=== PATIENT | male | born 1945 | race Caucasian/White ===

== ENCOUNTER → 2023-06-18 16:31 | Outpatient (REF) | payer MEDICARE, SELFPAY | LOC: PAVMRI 16:31 | PROVIDERS: ATTENDING PHYSICIAN Orthopaedic Surgery; FAMILY PHYSICIAN Internal Medicine | DX: M54.16 Radiculopathy, lumbar region (principal); M25.552 Pain in left hip | CPT/HCPCS: 72148; 73721 ==

== ENCOUNTER 2023-10-06 10:01 | Emergency (ER) | payer MEDICARE, SELFPAY ==
[2023-10-06 10:06] VITALS: BP 129/69
[2023-10-06 10:29] LABS: % Basophils 0.3 % (0-2); % Immature Granulocytes 0.8 % (0-0.5); % Lymphocytes 12.1 % (20.5-51.1); % Monocytes 5.9 % (1.7-9.3); % Neutrophils 77.9 % (42.2-75.2); Absolute Eosinophils 0.3 10^3/uL (0-0.7); Absolute Immature Granulocytes 0.1 10^3/uL (0-0.05); Absolute Lymphocytes 1.3 10^3/uL (1.2-3.4); Absolute Monocytes 0.6 10^3/uL (0.1-0.6); Absolute Neutrophils 8.1 10^3/uL (1.4-6.5); Hematocrit 35.7 % (39.0-52.0); Hemoglobin 12.7 g/dL (13.0-18.0); Mean Corp Hgb Conc. 35.6 g/dL (33.0-37.0); Mean Corpuscular Hgb 32.2 pg (27.0-31.0); Mean Corpuscular Volume 90.4 fL (80.0-94.0); Mean Platelet Volume 8.1 fL (7.4-10.4); Nucleated Red Blood Cells % 0 % (-); Platelet Count 237 10^3/uL (130-400); Red Blood Cell Count 3.95 10^6/uL (4.70-6.10); White Blood Cell Count 10.4 10^3/uL (4.8-10.8)
[2023-10-06 10:40] LABS: ALT (SGPT) 16 U/L (0-50); AST (SGOT) 28 U/L (17-59); Albumin 3.4 g/dl (3.5-5.0); Alkaline Phosphatase 64 U/L (38-126); Blood Urea Nitrogen 32 mg/dl (9-20); Calcium 8.8 mg/dl (8.4-10.2); Carbon Dioxide 25 mmol/L (22-30); Chloride 105 mmol/L (98-107); Glucose 192 mg/dl (70-99); Potassium 4.6 mmol/L (3.5-5.1); Sodium 138 mmol/L (135-145); Total Bilirubin 0.5 mg/dl (0.2-1.3); Total Protein 6.8 g/dl (6.3-8.2); eGFR 38.53
[2023-10-06 10:51] LABS: Troponin I 0.019 ng/ml
--- NOTE | 2023-10-06 12:09 | ED.GENMED ---
History of Present Illness
General
Chief Complaint: Fall
Source: patient
Exam Limitations: none
Time Seen by Provider: 10/06/23 11:50
Nursing documentation reviewed up to this point in time: agreed with
Travel History
Have you had any contact with someone who has COVID-19?: No
Do you have any symptoms of coronavirus? Fever > 100 degrees, chills, cough, shortness of breath, sore throat, loss of taste or smell, muscle aches, or headache?: No
History of Present Illness
History of Present Illness:
pt is a 77 y/o M with h/o amb dysfunction, cva, neuropathy uses a rollator chronically, CKD with cr 1.2 most recently within 3 mo
says at 9 am this morning he was walking with his rollator an dhad his hand on it, but turned to go another direction and got dizzy and lost his balance and fell and hit his forehead on the kitchen floor
he wasa ble tu eventually get himself up but it took a bit of effort
he does have history of falling
no anticoagulants but is on palvix
has a headache/forehead hematoma and some sorenss to his neck
no other injuries
denies nausea, vomiting, confusion, LOC, weakness, numbness;
has h/o orthostasis
has been told to sit on the side beofre stnading but he often times feels lightheaded wtih standing
he hasn't fallen in some time
no bp meds
Past History
Past History
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
ED Past Surgical History: Appendectomy, Cholecystectomy, Orthopedic (L shoulder arthroscopy) and Other (herniorrhaphy; cataract extraction OU)
Social History
Tobacco: Non-smoker
Alcohol: None
Drug: None
Personal:
Living: with family
Employment: Employed
Family History
Family History: Diabetes
Review of Systems
Review of Systems
Allergies reviewed?: Yes
All Other Systems: Not applicable
Phy Exam
Physical Exam
Physical Exam:
GENERAL: Alert , in no apparent distress
HEAD: small forehead hematoma left eyebrow; nontender
NECK:no midline tenderness, mild tendneress left lateral trap region
able to rotated flexion/extension intact
EYE: pupils equal and reactive, EOMs intact. (R has a tympanostomy tube)
left anterior septal dried blood
ENT: o/p clr, mmm.
CARDIAC: Regular rate and rhythm, no edema
LUNGS: Clear breath sounds bilaterally, no acute respiratory distress, no wheezes/rales/rhonchi
NEUROLOGICAL: Alert and oriented, no focal neuro deficits, CN intact, 5/5 strength, sensation intact; pt needs assistance with walking
SKIN: Warm and dry,
MUSCULOSKELETAL: No edema, well perfused.
PSYCH: Normal and appropriate interaction.
Course
Orders/Labs/Results
Orders:
Orders
10/06/23 10:10
CT Head W/o Iv Contrast Urgent
Comment:
Reason For Exam: dizzy, fall, head strike on plavix
10/06/23 10:18
Complete Blood Count/With Diff Urgent
Comprehensive Metabolic Panel Urgent
Troponin I Urgent
10/06/23 12:01
Electrocardiogram (*1) Urgent
Reason for Study: Vertigo / Dizzy
EKG- Treatment ONCE
Orthostatic VS- Treatment ONCE
10/06/23 12:41
0.9% Sodium Chloride 1000 ml [Nss] 1,000 ml IV BOLUS
10/06/23 13:29
Troponin I Urgent
Abnormal Lab Results
10/06/23
10:18
RBC 3.95 L 10^6/uL
(4.70-6.10)
Hgb 12.7 L g/dL
(13.0-18.0)
Hct 35.7 L %
(39.0-52.0)
MCH 32.2 H pg
(27.0-31.0)
Abs Immat Gran (auto) 0.1 H 10^3/uL
(0-0.05)
Absolute Neuts (auto) 8.1 H 10^3/uL
(1.4-6.5)
Immature Gran % 0.8 H %
(0-0.5)
Neutrophils % 77.9 H %
(42.2-75.2)
Lymphocytes % 12.1 L %
(20.5-51.1)
BUN 32 H mg/dl
(9-20)
Creatinine 1.8 H mg/dL
(0.7-1.3)
Glucose 192 H mg/dl
(70-99)
Albumin 3.4 L g/dl
(3.5-5.0)
10/06/23 10:18
10/06/23 10:18
Vital Signs
Initial and Last Documented VS:
Initial Vital Signs
Temp Pulse Resp BP Pulse Ox
98.1 F 60 20 129/69 97
10/06/23 10:06 10/06/23 10:06 10/06/23 10:06 10/06/23 10:06 10/06/23 10:06
Last Documented Vital Signs
Temp Pulse Resp BP Pulse Ox
98.1 F 66 20 163/88 97
10/06/23 10:06 10/06/23 14:45 10/06/23 10:06 10/06/23 14:45 10/06/23 10:06
MDM/Problems Addressed
Differential Diagnosis Includes:
orthostatic hypotension, near syncope, dehydration, ambulatory dysfunction
MDM/Problems Addressed:
77 yo M with h/o chronic gait problems, uses rollator, h/o orthostasi
ckd cr was 1.2 but up to > 2 years ago
here with fall
says he turned and got dizzy and fell
he does get dizzy spells, related to dropping his bp but hasn't had one causing a fall in a while
no thinners
hit his head on the ground and had bloody nose which resovled
no LOC
having midl headache, mild left sided trapezius soreness bu tothewrise feels fine
exam shows a small hematoma to left forehead, evidence of resolved epistaxis
no nasal bone tendenress
neck no midline tenderness, full ROM
neuro is grossly intact, he does have chorni cneuropathy in his legs and amb dysfunction and needs walker
ct head neg other than hematoma
labs show bump in cr to 1.8
bun slightly higher
initial trop neg but hadn't had EKG, which sohwed RBBB with new t wave deepning in vc, v4 but has had incomplete RBBB previously
2nd trop still unchanged
orthostatics done by me: lying 170/80 hr 65, standing 129/75 hr 74
pt say sthis is his typical and he felt ok standing
but agreed to IVF hydration given his slight ZOILA
received fluids
felt well
d/c home
outpatient f/u
*Critical Care Note
Total Time (30-74mins, 75-104mins- exclusive of procedures): Not Applicable
ED Attending Note
-
Portions of this chart may have been created with voice recognition software.� Occasional wrong word or��sound alike� substitutions may have occurred due to the inherent limitations of voice recognition software.
Discharge Plan
Departure
Patient Disposition: Home (Routine Discharge)
Date of Disposition: 10/06/23
Time of Disposition: 14:19
Patient with high blood pressure during this ER visit?: No
Condition: Fair
Discharge Problem:
Dehydration, Ambulatory dysfunction, Orthostasis, Fall, Minor closed head injury, Acute anterior epistaxis
Instructions: Orthostatic hypotension, Head Injury in Adults (DC), Dehydration, Adult ED
Prescriptions:
No Action
latanoprost 1 DROP drops
1 drp RIGHT EYE HS
gabapentin [Neurontin] 600 MG tablet
1,200 mg PO BID
ketorolac 1 DROP drops
1 drp LEFT EYE BID
atorvastatin 10 MG tablet
10 mg PO HS
omeprazole 20 MG capsule,delayed release(DR/EC)
20 mg PO DAILY
glipizide 5 MG tablet
10 mg PO BID
clopidogrel 75 MG tablet
75 mg PO DAILY Qty: 30 0RF
cyanocobalamin (vitamin B-12) 1,000 mcg Tablet
1,000 mcg PO DAILY
mycophenolate mofetil 500 mg Tablet
500 mg PO DAILY
prednisone 1 mg Tablet
3 mg PO DAILY
docusate sodium [Colace] 100 mg Capsule
100 mg PO DAILY
Centrum Silver Tablet
1 tab PO DAILY
Blink Tears 0.25 % Drops
1 drp ophthalmic (eye) BID
tramadol 50 mg tablet
50 mg PO Q6HPRN PRN (Reason: severe pain/breakthrough pain) Qty: 10 0RF
Referrals:
Bob Zarate MD [Family Provider] - Follow up in 2-3 days
Activity Restrictions/Additional Instructions:
You should make sure that you wait Padmaja on the side of the bed before standing because you definitely drop her blood pressure when you stand up. You may have been mildly dehydrated based on your blood work and it would probably be a very good
idea to follow-up with your depot manager or your family doctor and have these numbers rechecked in the next week or so. As far as the head injury you had no signs of serious head injury. You can take Tylenol as needed for pain. Ice off-and-on to
your head. Make sure to always use her walker. Return to the ER for worsening symptoms like passing out, worsening dizziness, chest pain or shortness of breath, severe headache, vomiting or any concerns
Interventions
Interventions:
*Risk Screen - Suicide Last Done: 10/06/23 14:08
*General Assessment Last Done: 10/06/23 14:41
*Neglect/Abuse Screening Last Done: 10/06/23 14:08
*Nursing Disposition Last Done: 10/06/23 14:45
ED-Musculoskeletal Assessment Last Done: 10/06/23 14:40
ED- Neurological Assessment Last Done: 10/06/23 14:08
ED-Skin Assessment Last Done: 10/06/23 14:08
Discharge Date and Time
Discharge Date/Time: 10/06/23 14:46
Print Language: TAJIK
[2023-10-06] MEDS: NSS 1000 IV (12:58)
[2023-10-06 14:10] LABS: Troponin I 0.017 ng/ml
[2023-10-06 14:44] VITALS: BP 129/69; BP 163/88; PULSE 66; PULSE 97
[2023-10-06 14:45] VITALS: BP 163/88
== END 2023-10-06 14:46 | disposition home or self-care (01) ==
LOC: EMR 10:01
PROVIDERS: Emergency Medicine; Physician Assistant; EMERGENCY PHYSICIAN Emergency Medicine; FAMILY PHYSICIAN Internal Medicine
DX: S09.90XA Unspecified injury of head, initial encounter (principal); E86.0 Dehydration; R26.2 Difficulty in walking, not elsewhere classified; R04.0 Epistaxis; I95.1 Orthostatic hypotension; N18.9 Chronic kidney disease, unspecified; W19.XXXA Unspecified fall, initial encounter; Z86.73 Personal history of transient ischemic attack (TIA), and cerebral infarction without residual deficits
CPT/HCPCS: 99285; 96360; 70450; 80053; 84484; 85025; 93005

== ENCOUNTER → 2023-12-21 12:54 | Outpatient (REF) | payer MEDICARE, SELFPAY | LOC: HWRAD 12:54 | PROVIDERS: ATTENDING PHYSICIAN Internal Medicine | DX: R05.1 Acute cough (principal) | CPT/HCPCS: 71046 ==

== ENCOUNTER 2024-08-22 14:05 | Emergency (ER) | payer MEDICARE, SELFPAY ==
[2024-08-22 14:08] VITALS: BP 133/70
[2024-08-22 15:10] VITALS: BMI 29.7
[2024-08-22 15:11] VITALS: BP 167/86
--- NOTE | 2024-08-22 15:36 | ED.MUSCINJ ---
HPI-Injury
General
Chief Complaint: Fall
Source: patient
Exam Limitations: none
Time Seen by Provider: 08/22/24 14:39
Nursing documentation reviewed up to this point in time: agreed with
History of Present Illness-Injury
Is this injury a work related problem?: No
Is pt an associate of [facility]?: No
Initial Injury comments:
Patient to ED after fall. States he was taking a walk using his rolator. He felt tired and tried to sit but became weak and fell. He denies hittinghis head. COmplains of pain to his right elbow. 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
Past History
Past History
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
ED Past Surgical History: Appendectomy, Cholecystectomy, Orthopedic (L shoulder arthroscopy) and Other (herniorrhaphy; cataract extraction OU)
Social History
Tobacco: Non-smoker
Alcohol: None
Drug: None
Personal:
Living: with family
Employment: Employed
Family History
Family History: Diabetes
Review of Systems
Review of Systems
Allergies reviewed?: Yes
All Other Systems: ROS reviewed and negative except as documented in HPI and ROS
Constitutional: Reports no symptoms
EENT: Reports no symptoms
Respiratory: Reports no symptoms
Cardiac: Reports no symptoms
ABD/GI: Reports no symptoms
Musculoskeletal: Reports joint pain (Pain to right elbow)
Skin: Reports other (Abrasion right ant. knee, right posterior elbow)
Neurological: Reports no symptoms
Psychiatric: Reports no symptoms
Musculoskeletal Injury Exam
Musculoskeletal Injury Exam
Right Elbow:
Pain with Movement?: Moderate
Tender to palpation?: Moderate
Soft tissue swelling?: Moderate
External deformity and angulation?: None
Joint effusion?: Moderate
Contusion?: Moderate
Hematoma-local bleeding into tissue?: Moderate
Strain- Sprain- Tear (Connective tissue injury)?: Moderate
Crepitus with movement?: No
Joint instability?: No
Malalignment/deformity?: No
Range of motion: Limited
Distal skin color and temperature: normal-warm & good color
Capillary Refill: normal
Normal distal neurovascular exam?: Yes
Peripheral Pulses: radial (right): 3+
Skin Exam
Abrasion
Right Posterior Elbow:
Description of abrasion: superfical/clean
Right Anterior Knee:
Description of abrasion: superfical/clean
Phy Exam
General Physical Exam
General Presentation: moderate distress
General age: appears stated age
General Skin: warm and dry
General Habitus: normal
General Mental: alert
Cardiovascular Exam
Cardiovascular Exam: regular rate/rhythm
Gastrointestinal Exam
Gastrointestinal Exam: non tender and soft
Neurological Exam
Neurological Exam: alert, oriented x3, CN II-XII intact, no motor deficits, no sensory deficits and speech normal
Musculoskeletal Exam
Musculoskeletal Exam: neuro vasc intact
Skin Exam
Skin Exam: normal color, warm/dry and no rash
Psychiatric Exam
Psychiatric Exam: normal mood/affect
Injury Course
Orders/Labs/Results
Orders:
Orders
08/22/24 14:11
CR Elbow - Right Min 3 Views Urgent
Comment:
Reason For Exam: pain, fall
CR Humerus - Right Min 2 View* Urgent
Comment:
Reason For Exam: pain, fall
Ribs, Right 3 View W/PA Chest [CR Ribs-right 3 Vw W/pa Chest*] Urgent
Comment:
Reason For Exam: pain, fall
08/22/24 15:39
Long Arm Right-Treatment ONCE
Sling Right-Treatment ONCE
08/22/24 15:40
Bedside Glucose- Treatment ONCE
08/22/24 15:41
Oxycodone/Acetaminophen [Percocet 5/325] 1 tablet PO NOW STA
Tetanus/Diphth/Acelpertussis [Adacel] 0.5 ml IM .ONCE ONE
08/22/24 16:20
Type And Crossmatch [Type+Screen] Urgent
CMP [Comprehensive Metabolic Panel] Urgent
Complete Blood Count/With Diff Urgent
PTT Urgent
Prothrombin Time Urgent
08/22/24 17:20
ABO2 Urgent
BBK Wristband Number:
Associate notified that ABO2 has been ordered: [id number]
Date: 08/22/24
Time: 16:37
Break Off Worker ID: [id number]
Abnormal Lab Results
08/22/24 08/22/24
16:20 16:28
RBC 3.96 L 10^6/uL
(4.70-6.10)
Hgb 12.7 L g/dL
(13.0-18.0)
Hct 36.6 L %
(39.0-52.0)
MCH 32.1 H pg
(27.0-31.0)
Abs Immat Gran (auto) 0.1 H 10^3/uL
(0-0.05)
Absolute Neuts (auto) 8.1 H 10^3/uL
(1.4-6.5)
Absolute Lymphs (auto) 0.9 L 10^3/uL
(1.2-3.4)
Absolute Monos (auto) 0.8 H 10^3/uL
(0.1-0.6)
Neutrophils % 81.9 H %
(42.2-75.2)
Lymphocytes % 8.9 L %
(20.5-51.1)
BUN 34 H mg/dl
(9-20)
Creatinine 2.2 H mg/dL
(0.7-1.3)
Glucose 188 H mg/dl
(70-99)
POC Glucose 176 H mg/dl
(70-99)
08/22/24 16:20
08/22/24 16:20
*Radiology
Radiology exam reviewed: radiology read reviewed
*Pulse Oximetry
Patient hypoxic: no
*Critical Care Note
Total Time (30-74mins, 75-104mins- exclusive of procedures): Not Applicable
Update Note
Update Note:
Patient to ED s/p fall. Xray reveals comminuted fx right elbow. RUE long arm splint and sling applied. Patient uses walker for ambulation. Unable to currently transfer without max assist. Unable to safely ambulate without max assist. Will be
admitting to hospitalist service. Dr. Wade will contulst.
ED Attending Note
-
Portions of this chart may have been created with voice recognition software.� Occasional wrong word or��sound alike� substitutions may have occurred due to the inherent limitations of voice recognition software.
Discharge Plan
Departure
Patient Disposition: Acute Care Hospital
Date of Disposition: 08/22/24
Time of Disposition: 18:12
Discharge Problem:
Humerus distal fracture
Prescriptions:
No Action
latanoprost 1 DROP drops
1 drp RIGHT EYE HS
gabapentin [Neurontin] 600 MG tablet
1,200 mg PO BID
ketorolac 1 DROP drops
1 drp LEFT EYE BID
atorvastatin 10 MG tablet
10 mg PO HS
omeprazole 20 MG capsule,delayed release(DR/EC)
20 mg PO DAILY
glipizide 5 MG tablet
10 mg PO BID
clopidogrel 75 MG tablet
75 mg PO DAILY Qty: 30 0RF
cyanocobalamin (vitamin B-12) 1,000 mcg Tablet
1,000 mcg PO DAILY
mycophenolate mofetil 500 mg Tablet
500 mg PO DAILY
prednisone 1 mg Tablet
3 mg PO DAILY
docusate sodium [Colace] 100 mg Capsule
100 mg PO DAILY
Centrum Silver Tablet
1 tab PO DAILY
Blink Tears 0.25 % Drops
1 drp ophthalmic (eye) BID
tramadol 50 mg tablet
50 mg PO Q6HPRN PRN (Reason: severe pain/breakthrough pain) Qty: 10 0RF
Referrals:
Bob Zarate MD [Family Provider] -
Hospital Transfer
Other hospital: [facility]
I certify that the patient requires transfer: Yes
Discussed case with accepting physician: Dr. Bond
Reason for transfer: specialties available
Interventions
Interventions:
*Risk Screen - Suicide Last Done: 08/22/24 14:08
*General Assessment Last Done: 08/22/24 14:08
*Neglect/Abuse Screening Last Done: 08/22/24 15:07
*ED- Fall Risk Assessment Last Done: 08/22/24 15:07
*ED COVID-19 Vaccine History Last Done: 08/22/24 15:07
*Nursing Disposition Last Done: 08/22/24 19:35
ED-Musculoskeletal Assessment Last Done: 08/22/24 16:35
ED- Neurological Assessment Last Done: 08/22/24 15:09
ED-Skin Assessment Last Done: 08/22/24 16:35
Discharge Date and Time
Discharge Date/Time: 08/22/24 19:35
Print Language: DANISH
[2024-08-22] MEDS: ADACEL 0.5 ML IM (16:10)
[2024-08-22] MEDS: PERCOCET 5/325 1 TABLET PO (16:12)
[2024-08-22 16:31] LABS: Glucose - Point of Care 176 mg/dl (70-99)
[2024-08-22 16:33] LABS: % Basophils 0.3 % (0-2); % Eosinophils 0.6 % (0-6); % Immature Granulocytes 0.5 % (0-0.5); % Lymphocytes 8.9 % (20.5-51.1); % Monocytes 7.8 % (1.7-9.3); % Neutrophils 81.9 % (42.2-75.2); Absolute Eosinophils 0.1 10^3/uL (0-0.7); Absolute Immature Granulocytes 0.1 10^3/uL (0-0.05); Absolute Lymphocytes 0.9 10^3/uL (1.2-3.4); Absolute Monocytes 0.8 10^3/uL (0.1-0.6); Absolute Neutrophils 8.1 10^3/uL (1.4-6.5); Hematocrit 36.6 % (39.0-52.0); Hemoglobin 12.7 g/dL (13.0-18.0); Mean Corp Hgb Conc. 34.7 g/dL (33.0-37.0); Mean Corpuscular Hgb 32.1 pg (27.0-31.0); Mean Corpuscular Volume 92.4 fL (80.0-94.0); Mean Platelet Volume 8.5 fL (7.4-10.4); Nucleated Red Blood Cells % 0 % (-); Platelet Count 164 10^3/uL (130-400); Red Blood Cell Count 3.96 10^6/uL (4.70-6.10); Red Cell Dist. Width 12.6 % (11.5-14.5); White Blood Cell Count 9.8 10^3/uL (4.8-10.8)
[2024-08-22 16:43] LABS: INR 1.02; PT 13.7 Sec (11.4-14.6)
[2024-08-22 16:44] LABS: APTT 31.2 Sec (23.4-35.0)
[2024-08-22 16:53] LABS: ALT (SGPT) 15 U/L (0-50); AST (SGOT) 25 U/L (17-59); Albumin 3.9 g/dl (3.5-5.0); Alkaline Phosphatase 81 U/L (38-126); Blood Urea Nitrogen 34 mg/dl (9-20); Calcium 8.9 mg/dl (8.4-10.2); Carbon Dioxide 23 mmol/L (22-30); Chloride 102 mmol/L (98-107); Estimated Creatinine Clearance 29 ml/min; Glucose 188 mg/dl (70-99); Potassium 4.6 mmol/L (3.5-5.1); Sodium 137 mmol/L (135-145); Total Bilirubin 0.7 mg/dl (0.2-1.3); Total Protein 6.6 g/dl (6.3-8.2); eGFR 30.09
[2024-08-22 17:23] VITALS: BP 203/87
[2024-08-22 18:25] VITALS: BP 188/88
== END 2024-08-22 19:35 | disposition short-term general hospital (02) ==
LOC: EMR 14:05
PROVIDERS: Nurse Practitioner; EMERGENCY PHYSICIAN Emergency Medicine; FAMILY PHYSICIAN Internal Medicine
DX: S42.491A Other displaced fracture of lower end of right humerus, initial encounter for closed fracture (principal); S80.211A Abrasion, right knee, initial encounter; W19.XXXA Unspecified fall, initial encounter; E11.9 Type 2 diabetes mellitus without complications; E78.00 Pure hypercholesterolemia, unspecified; I10 Essential (primary) hypertension; Z86.73 Personal history of transient ischemic attack (TIA), and cerebral infarction without residual deficits; Z90.49 Acquired absence of other specified parts of digestive tract; Z23 Encounter for immunization
CPT/HCPCS: 29105; 90471; 99284; 71101; 73060; 73080; 80053; 82962; 85025; 85610; 85730; 86850; 86900; 86901; 90715